=== PATIENT | male | born 1940 | race Caucasian/White ===

== ENCOUNTER → 2025-03-13 09:56 | Outpatient (REF) | payer MEDICARE, BC, OTHER, SELFPAY | LOC: RST 09:56 | PROVIDERS: ATTENDING PHYSICIAN Family Medicine; REFERRING PHYSICIAN Psychiatry & Neurology Neurology | DX: R13.10 Dysphagia, unspecified (principal); G20.A1 Parkinson's disease without dyskinesia, without mention of fluctuations; Z96.82 Presence of neurostimulator | CPT/HCPCS: 74230; 92611 ==